=== PATIENT | male | born 1950 | race Caucasian/White ===

== ENCOUNTER 2022-10-21 07:22 | Day surgery (SDC) | payer OTHER, SELFPAY ==
--- NOTE | 2022-10-21 | PATH_ITS ---
[facility] Accession Number: [id number] No. of containers..05 Tissue . 01 Material submitted: . PART A: stomach - ANTRAL ULCER PART B: gastrointestinal site - GASTRIC POLYPS PART C: esophagus - MID ESOPHAGUS PART D: cecum - CECAL POLYP PART E: sigmoid colon - SIGMOID POLYP . 01 Diagnosis: A. Gastric Antrum, Biopsy: Gastric antral mucosa with mild features of reactive gastropathy. Negative for Helicobacter organisms by immunohistochemistry. Negative for intestinal metaplasia. Negative for dysplasia or malignancy. . B. Gastric Polyp: Consistent with early fundic gland polyp. No evidence of Helicobacter organisms on H/E stain. Negative for intestinal metaplasia. Negative for dysplasia and malignancy. . C. Mid Esophagus, Biopsy: Squamous mucosa with mild reactive features of reflux esophagitis. Intraepithelial eosinophils are not increased. Negative for fungal organisms on AB/PAS stain. Negative for dysplasia or malignancy. . D. Cecal Polyp: Tubular adenoma. . E. Sigmoid Colon Polyp: Hyperplastic polyp. [facility] 10/25/2022 1440 Local . 01 Electronically signed: . Dago Carrington MD, PhD, Pathologist NPI- [id number] . 01 Gross description: . Part A: ANTRAL ULCER: Received in formalin are 2 fragment(s) of youssef, soft tissue measuring 0.1 x 0.1 x 0.1 cm submitted entirely in 1 cassette(s) Part B: GASTRIC POLYPS: Received in formalin is 1 fragment(s) of youssef, soft tissue measuring 0.3 x 0.2 x 0.2 cm submitted entirely in 1 cassette(s) Part C: MID ESOPHAGUS: Received in formalin are 2 fragment(s) of youssef, soft tissue measuring 0.3 x 0.2 x 0.1 cm to 0.2 x 0.2 x 0.1 cm submitted entirely in 1 cassette(s) Part D: CECAL POLYP: Received in formalin are 3 fragment(s) of youssef, soft tissue measuring 0.2 x 0.1 x 0.1 cm to 0.1 x 0.1 x 0.1 cm submitted entirely in 1 cassette(s) Part E: SIGMOID POLYP: Received in formalin is 1 fragment(s) of youssef, soft tissue measuring 0.5 x 0.4 x 0.4 cm submitted entirely in 1 cassette(s) /[facility] 10/23/2022 1309 Local . 01 Microscopic: . A. An immunohistochemical stain was performed to evaluate for Helicobacter organisms and is negative. The control stain showed appropriate reactivity. . C. An AB/PAS stain is performed to evaluate for fungal organisms and is negative. A control stain shows appropriate reactivity. . * This test was developed and its performance characteristics determined by [employer]. It has not been cleared or approved by the U.S. Food and Drug Administration. The FDA has determined that such clearance or approval is not necessary. This test is used for clinical purposes. It should not be regarded as investigational or for research. . 01 Pathologist provided ICD-10: R13.10, K21.9, K29.60, D12.0 . 01 CPT . 146803, 831095, 200376, 449489, 912706, L03413, 239856 Specimen Comment: A courtesy copy of this report has been sent to [phone] Performed at: 01 [facility] [address] [place] [address] [address] [facility], [place], [place] [id number] MD Tenzin Crystal MD Phone: [phone]
[2022-10-21 07:43] VITALS: BP 174/86; PULSE 81; RESP 19; TEMP 36.6; O2SAT 97; BMI 17.9
[2022-10-21] MEDS: LACTATED RINGERS 1,000 ML 42 ML IV (07:58)
--- NOTE | 2022-10-21 08:00 | P.HP_ITS ---
History of Present Illness History of Present Illness Date Patient Seen: 10/21/22 Time Patient Seen: 08:00 Chief complaint: SDC Narrative: I reviewed the recent office note by Nate Lozano. No changes. [facility] Social History household members: spouse Smoking Status: Current every day smoker alcohol intake: current Meds Home Medications and Allergies Home Medications Medication Instructions Recorded Confirmed Type acetaminophen 325 mg tablet 650 mg PO BID PRN Pain (Scale 10/21/22 10/21/22 History (Tylenol) Score 1-3) amlodipine 10 mg tablet 10 mg PO DAILY 10/21/22 10/21/22 History aspirin 81 mg capsule 81 mg PO DAILY 10/21/22 10/21/22 History carvedilol 12.5 mg tablet 12.5 mg PO BID 10/21/22 10/21/22 History diazepam 5 mg tablet 5 mg PO QID 10/21/22 10/21/22 History ferrous sulfate 325 mg (65 mg 325 mg PO DAILY 10/21/22 10/21/22 History iron) tablet (FeroSul) gabapentin 300 mg capsule 300 mg PO QID 10/21/22 10/21/22 History losartan 25 mg tablet 25 mg PO DAILY 10/21/22 10/21/22 History tizanidine 4 mg tablet 4 - 8 mg PO BEDTIME PRN unknown 10/21/22 10/21/22 History tramadol 50 mg tablet 50 mg PO Q6H 10/21/22 10/21/22 History Allergies Allergy/AdvReac Type Severity Reaction Status Date / Time ibuprofen AdvReac Verified 10/21/22 08:00 lisinopril AdvReac Verified 10/21/22 08:00 quetiapine [From Seroquel] AdvReac Weakness Verified 10/21/22 08:00 Review of Systems Review of Systems ROS: Yes All systems reviewed with the patient and are negative except as otherwise documented Exam Const General: cooperative HENMT Head: normal to inspection Eyes General: appearance normal, both eyes and all related structures Neck Neck: normal visual inspection Chest Chest: normal inspection of the chest Resp Effort & Inspection: normal respiratory effort Cardio Rate: regular rate GI Inspection: normal to inspection Skin General: no rashes or lesions noted Neuro General: patient alert and patient awake Extrem General: normal to inspection and no pedal edema Psych Appearance: grossly normal Assessment & Plan Assessment & Plan narrative: 71-year-old male with chronic dysphagia that he attributes to prior cervical spinal surgery. EGD is pursued along with colonoscopy for colon cancer screening.
--- NOTE | 2022-10-21 08:02 | PM.PREOP ---
Pre-operative Note Interval Note History & Physical reviewed/Exam performed by Physician: Yes Changes to H&P: No ASA Class (for procedural sedation): III
--- NOTE | 2022-10-21 09:13 | PM.OP.EC ---
Operative Date/Time/Diagnoses Date of procedure: 10/21/22 Time of procedure: 09:14 Pre-op diagnosis: Dysphagia and colon cancer screening Post-op diagnosis: same Procedure & Clinicians Study performed: EGD with biopsies and colonoscopy with hot and cold snare polypectomy Same procedure as scheduled: Yes Indications: Dysphagia and colon cancer screening Surgeon: Asher Simons Procedure Notes SCOAP/Timeout: Done Procedure in detail: After the risks and benefits were explained, written and verbal informed consent was obtained. The patient was brought into the procedure room and placed into the left lateral decubitus position. Please see anesthesia notes for sedation details. The scope was introduced into the mouth through the bite block and advanced under direct visualization to the 2nd portion of the duodenum. The scope was slowly withdrawn carefully examining the mucosa for any defects or lesions. Retroflexed views were accomplished in the stomach. The stomach was decompressed, the scope was then removed from the patient who tolerated the procedure well. The patient was turned around and a digital rectal examination accomplished. The scope was introduced into the rectum and advanced to the cecum as identified by the appendiceal orifice and ileocecal valve. The scope was slowly withdrawn to carefully examine the mucosa for any defects or lesions. Multiple direct views were made through the dentate line for exclusion of pathology. The colon was decompressed. The scope was removed from the patient who tolerated the procedure well. Pediatric colonoscope Bowel prep adequate Scope withdrawal time: 13 minutes Sedation minutes: 59 Complications: none Impression: 1. Duodenum: This was visually unremarkable from the bulb through to the 2nd portion. 2. Stomach: No gastric outlet obstruction. There was a small 4 mm bland based ulcer in the antrum. The edges of this were targeted for biopsy. There was a small 4 mm polyp removed from the distal gastric body. Otherwise retroflexed views of the LES were unremarkable. 3. Esophagus: The squamocolumnar junction correlated with the top of the gastric folds. No acute erosive changes no strictures no mass lesions. GEJ was at 43 cm from the incisors. I did not appreciate any stricturing nor obvious pathology to account for dysphagia. Random mid esophageal biopsies were acquired for exclusion of eosinophilic infiltration. 4. Colon: The patient had an extremely tortuous colon. Navigation was challenging. In the cecum there was a 5 mm polyp removed with cold snare. In the sigmoid there was an approximately 10 mm flat polyp removed with hot snare. Patient had evidence of grade 2 internal hemorrhoids. Endoscopic diagnosis 1. Gastric polyp 2. Small gastric ulcer 3. Colon polyps 4. Hemorrhoids grade 2 Post-procedure Plan for aftercare: 1. Await histopathology 2. Follow up in GI clinic with Nate Lozano 3. The timing of repeat colonoscopy will be contingent on pathology results. Disposition: PACU
[2022-10-21 09:17] VITALS: BP 133/70; PULSE 65; RESP 16; TEMP 36.9; O2SAT 99
[2022-10-21 09:23] VITALS: BP 115/63; PULSE 59; RESP 18; O2SAT 93
[2022-10-21 09:27] VITALS: BP 130/57; PULSE 61; RESP 18; O2SAT 97
[2022-10-21 09:37] VITALS: BP 134/67; PULSE 61; RESP 14; TEMP 36.9; O2SAT 94
[2022-10-21 09:49] VITALS: BP 134/67; PULSE 61; RESP 14; O2SAT 94
== END 2022-10-21 09:55 | disposition home or self-care (01) ==
PROVIDERS: PCP Family Medicine; Referring Provider Internal Medicine Gastroenterology; Visit Provider Internal Medicine Gastroenterology
PROC: 0DJ08ZZ Inspection of Upper Intestinal Tract, Via Natural or Artificial Opening Endoscopic (ICD-10-PCS; CPT 43235; principal; 2022-10-21 08:30)
PROC: 0DJD8ZZ Inspection of Lower Intestinal Tract, Via Natural or Artificial Opening Endoscopic (ICD-10-PCS; CPT 45378; 2022-10-21 08:30)
DX: Z12.11 Encounter for screening for malignant neoplasm of colon (principal); Z86.010 Personal history of colon polyps; R13.10 Dysphagia, unspecified; K64.1 Second degree hemorrhoids; K31.7 Polyp of stomach and duodenum; K25.9 Gastric ulcer, unspecified as acute or chronic, without hemorrhage or perforation; D12.0 Benign neoplasm of cecum; K31.9 Disease of stomach and duodenum, unspecified
CPT/HCPCS: 45385; 43239; J2704